=== PATIENT | male | born 1965 | race Caucasian/White ===

== ENCOUNTER 2020-12-23 19:55 | Emergency (ER) | payer OTHER ==
[~2020-12-23] VITALS: Ht 185.4 cm; Wt 104.3 kg
[~2020-12-23 19:55] MED LIST: ALBU4 PO; AZIT500 PO; BACL10 PO; CLIN300 PO; FLEXATINE; FLUSAL1005 INH; HYDACE5325 PO; OXYC5; PREG25 PO; Prednisone20 MG PO; RXCLIN PO; RXHYD5325 PO; TRAZ50 PO; Zithromax250 MG PO
[2020-12-23 20:21] LABS: Source, Urine Clean Catch
[2020-12-23 20:22] LABS: BASOPHILS ABSOLUTE AUTO 0.04 K/mm3 (0.00-0.23); BASOPHILS PERCENT AUTO 1 % (0-2); EOSINOPHILS ABSOLUTE AUTO 0.14 K/mm3 (0.00-0.68); EOSINOPHILS PERCENT AUTO 2 % (0-6); Hematocrit 44.6 % (37.0-53.0); IMMATURE GRAN ABSOLUTE AUTO 0.02 K/mm3 (0.00-0.10); IMMATURE GRAN PERCENT AUTO 0 % (0-1); LYMPHOCYTES ABSOLUTE AUTO 1.57 K/mm3 (0.84-5.20); LYMPHOCYTES PERCENT AUTO 20 % (21-46); MONOCYTES ABSOLUTE AUTO 0.53 K/mm3 (0.16-1.47); MONOCYTES PERCENT AUTO 7 % (4-13); Mean Corpuscular HGB 33.8 pg (26.0-34.0); Mean Corpuscular HGB Conc 35.9 g/dL (31.5-36.5); Mean Corpuscular Volume 94 fL (80-100); Mean Platelet Volume 9.7 fL (9.1-12.4); NEUTROPHILS ABSOLUTE AUTO 5.44 K/mm3 (1.96-9.15); NEUTROPHILS PERCENT AUTO 70 % (41-73); Platelet Count 237 K/mm3 (150-400); RDW Coefficient Variation 12.5 % (11.7-14.2); RDW Standard Deviation 43.6 fL (35.1-46.3); Red Blood Cell Count 4.73 M/mm3 (4.30-5.90); White Blood Cell Count 7.74 K/mm3 (4.00-11.30)
[2020-12-23 20:40] LABS: Alanine Aminotransfer (ALT/SGP 42 U/L (12-78); Albumin, Blood 3.7 g/dL (3.4-5.0); Albumin/Globulin Ratio 0.9 (0.8-1.8); Alk Phos 45 U/L (50-136); Anion Gap 3 mmol/L (6-16); Aspartate Aminotrans (AST/SGOT 67 U/L (12-37); Blood Urea Nitrogen 18 mg/dL (8-24); Bun/Creatinine Ratio 21.2 (12.0-20.0); CO2, Blood 28 mmol/L (21-32); Calcium, Blood 9.7 mg/dL (8.5-10.1); Chloride, Blood 107 mmol/L (98-108); Creatinine, Blood 0.85 mg/dL (0.60-1.20); Globulin, Blood 4.1 g/dL (2.2-4.0); Glomerular Filtration Rate >60 (60-); Glucose, Blood 94 mg/dL (70-99); Potassium, Blood 5.1 mmol/L (3.5-5.5); Sodium, Blood 138 mmol/L (136-145); Total Protein, Blood 7.8 g/dL (6.4-8.2)
[2020-12-23 20:50] LABS: Appearance, Urine Clear (Clear); Bilirubin, Urine Neg (Neg); Blood, Urine Neg (Neg); Color, Urine Yellow (P-Yellow); Glucose Qualitative, Urine Neg (Neg); Ketones, Urine Neg (Neg); Leukocyte Esterase, Urine Neg (Neg); Nitrite, Urine Neg (Neg); Protein, Urine Neg (Neg); Specific Gravity, Urine 1.025 (1.003-1.022); Urobilinogen, Urine NORM (Normal)
[2020-12-23] MEDS ORDERED: ALBU90OI INH (23:03)
[2020-12-23] MEDS ORDERED: BACL20 PO (23:04)
[2020-12-23] MEDS ORDERED: BUPR150ER PO (23:07)
[2020-12-23] MEDS ORDERED: TRAZ100 PO (23:14)
[2020-12-23] MEDS ORDERED: DULOXETINE HCL60 M1 PO (23:14)
[2020-12-23] MEDS ORDERED: Prinivil10 MG PO (23:15)
[2020-12-23] MEDS ORDERED: MONT10T PO (23:16)
[2020-12-23] MEDS ORDERED: SUMA25 PO (23:16)
== END 2020-12-23 22:56 | disposition home or self-care (01) ==
LOC: ER 19:55
PROVIDERS: Emergency Medicine
DX: R10.9 Unspecified abdominal pain (principal); Z79.899 Other long term (current) drug therapy
CPT/HCPCS: 74177; 80053; 81003; 83690; 85025; 93005; 93010; 96374-59; 99285-25; A9270; J3010; Q9967

== ENCOUNTER 2021-10-13 14:23 | Emergency (ER) | payer OTHER ==
[~2021-10-13] VITALS: Ht 185.4 cm; Wt 104.3 kg
[~2021-10-13 14:23] MED LIST changes: +ALBU90OI INH; +BACL20 PO; +BUPR150ER PO; +DULOXETINE HCL60 M1 PO; +MONT10T PO; +Prinivil10 MG PO; +SUMA25 PO; +TRAZ100 PO
[2021-10-13] MEDS ORDERED: HYDR1TAB94 PO (17:57)
== END 2021-10-13 18:32 | disposition home or self-care (01) ==
LOC: ER 14:23
DX: T21.22XA Burn of second degree of abdominal wall, initial encounter (principal); T31.0 Burns involving less than 10% of body surface; X16.XXXA Contact with hot heating appliances, radiators and pipes, initial encounter; Z88.0 Allergy status to penicillin; Z88.8 Allergy status to other drugs, medicaments and biological substances; Z79.899 Other long term (current) drug therapy; I10 Essential (primary) hypertension; J45.909 Unspecified asthma, uncomplicated
CPT/HCPCS: 96374; 96375; 99284-25

== ENCOUNTER 2024-06-28 18:38 | Emergency (ER) | payer OTHER ==
[~2024-06-28] VITALS: Ht 185.4 cm; Wt 113.4 kg
[~2024-06-28 18:38] MED LIST changes: +ALBU3IS INH; +HYDR1TAB94 PO; +IPRAT-ALBUT 0.5-3 ML INH
[2024-06-28] MEDS ORDERED: DiphenhydrAMINE HCl 50 MG/ML 1ML Vial IV ONE (19:30)
[2024-06-28] MEDS ORDERED: Metoclopramide HCl 5MG / ML 2ML Vial IV ONE (19:30)
[2024-06-28] MEDS ORDERED: Ketorolac Tromethamine 15mg Vial IV ONE (19:30)
[2024-06-28] MEDS ORDERED: Acetaminophen 500 MG Tab PO ONE (19:30)
[2024-06-28] MEDS ORDERED: Methocarbamol 500 MG Tab PO ONE (19:35)
[2024-06-28] MEDS ORDERED: LIDO700A20 TOP (20:43)
[2024-06-28] MEDS ORDERED: METHOCARBAMOL1000 MG PO (20:43)
[2024-06-28] MEDS ORDERED: NAPR500 PO (20:43)
[2024-06-28 20:48] VITALS: BP 142/118
== END 2024-06-28 20:49 | disposition home or self-care (01) ==
LOC: ER 18:38
DX: M62.838 Other muscle spasm (principal); G44.209 Tension-type headache, unspecified, not intractable; I10 Essential (primary) hypertension; Z88.8 Allergy status to other drugs, medicaments and biological substances; Z88.0 Allergy status to penicillin
CPT/HCPCS: 96374; 96375; 99283-25; A9270; J1200; J1885; J2765